=== PATIENT | male | born 1955 | race Caucasian/White ===

== ENCOUNTER → 2020-11-30 | Day surgery (SDC) | payer OTHER ==
[~2020-11-30] VITALS: Ht 175.3 cm; Wt 91.3 kg
[~2020-11-30] MED LIST: CLARITIN10 MG PO; COREG 6.25MG6.25 MG PO; CYMBALTA60 MG PO; FLEXERIL5 MG PO; GLIPIZIDE ER10 MG PO; JARDIANCE25 MG PO; LEVAQUIN750 MG PO; LIPITOR40 MG PO; MEDROL 4MG DOSEP4 MG PO; MUCINEX600 MG PO; NEURONTIN300 MG PO; NITROQUIK SL0.4 MG SL; PHENYTOIN SODI300 MG PO; SUBOXONE 8 MG-1 EACH SL; VIBRAMYCIN100 MG PO; ZESTRIL2.5 MG PO
== END | disposition home or self-care (01) ==
LOC: FAS 06:58
DX: K31.89 Other diseases of stomach and duodenum (principal); K20.0 Eosinophilic esophagitis; R13.10 Dysphagia, unspecified; R63.4 Abnormal weight loss; K29.70 Gastritis, unspecified, without bleeding; Z86.010 Personal history of colon polyps; Z80.0 Family history of malignant neoplasm of digestive organs; E11.9 Type 2 diabetes mellitus without complications; F41.9 Anxiety disorder, unspecified; J44.9 Chronic obstructive pulmonary disease, unspecified; F17.210 Nicotine dependence, cigarettes, uncomplicated; Z95.1 Presence of aortocoronary bypass graft
CPT/HCPCS: 43239; G0105; 88305; J2250; J2704; J7120

== ENCOUNTER 2021-08-06 10:04 | Emergency (ER) | payer OTHER ==
[2021-08-06 11:13] LABS: BASOPHIL 0.8 % (0-2); EOSINOPHIL 4.7 % (0-7); HCT 46.1 % (42.0-52.0); HGB 15.8 g/dl (13.2-18.0); LYMPHOCYTE 18.1 % (15-48); MCH 33.3 pg (25.0-31.0); MCHC 34.3 g/dL (32.0-36.0); MCV 97.3 fL (78.0-100.0); MONOCYTE 7.8 % (0-12); MPV 10.4 fL (6.0-9.5); NEUTROPHIL 68.3 % (41-80); NRBC 0; PLT 197 K/uL (150-400); RBC 4.74 M/uL (4.70-6.00); RDW 13.9 % (11.5-14.0); WBC 10.7 K/uL (4.0-10.5)
[2021-08-06 11:18] LABS: ALBUMIN 3.1 g/dL (3.4-5.0); BILIRUBIN - TOTAL 0.2 mg/dL (0.2-1.0); BUN/CREAT RATIO (CALC) 15.4 RATIO; CREATININE 0.65 mg/dL (0.67-1.17); GLOBULIN (CALCULATION) 4.7 g/dL; POTASSIUM 4.2 mmol/L (3.5-5.1); TOTAL PROTEIN 7.8 g/dL (6.4-8.2)
== END 2021-08-06 14:09 | disposition home or self-care (01) ==
LOC: FER 10:04
PROVIDERS: Emergency Medicine
DX: G56.32 Lesion of radial nerve, left upper limb (principal)
CPT/HCPCS: 36415; 70450; 70551; 80053; 80061; 84484; 85025; 93005

== ENCOUNTER 2021-11-22 14:05 | Emergency (ER) | payer OTHER ==
[2021-11-22] MEDS ORDERED: NAPROXEN500 MG PO (16:33)
== END 2021-11-22 17:14 | disposition home or self-care (01) ==
LOC: FER 14:05
DX: S00.83XA Contusion of other part of head, initial encounter (principal); S80.211A Abrasion, right knee, initial encounter; E11.9 Type 2 diabetes mellitus without complications; F17.210 Nicotine dependence, cigarettes, uncomplicated; Z23 Encounter for immunization; Z28.310 Unvaccinated for COVID-19; Z79.84 Long term (current) use of oral hypoglycemic drugs; W01.0XXA Fall on same level from slipping, tripping and stumbling without subsequent striking against object, initial encounter; Y92.009 Unspecified place in unspecified non-institutional (private) residence as the place of occurrence of the external cause
CPT/HCPCS: 70450; 71045; 72125; 72170; 73030; 90471; 90715; 96372; J1885